=== PATIENT | male | born 1935 | race Hispanic/Latino ===

== ENCOUNTER 2018-06-28 12:26 | Outpatient (CLI) | payer MEDICARE ==
--- NOTE | 2018-07-03 10:45 | Vascular Lab Report ---
CAROTID DUPLEX STUDY: RIGHT PSVEDV CCA PROX:[id number] CCA DIST:6614 ICA PROX:8616 ICA MID:6820 ICA DIST:7719 ECA: 109 VERT: 54 14 LEFT PSVEDV CCA PROX:8715 CCA DIST:6712 ICA PROX:6813 ICA MID:7919 ICA DIST:6013 ECA: 89 VERT: 58 15 REASON FOR EXAM: Carotid artery stenosis. COMMENTS ON THE RIGHT: Doppler frequency analysis is consistent with 16 to 49 percent diameter reduction of the internal carotid artery. A moderate amount of mixed density plaque is seen. An irregular surface is noted. The common carotid artery is patent. The external carotid artery is patent. The vertebral artery has antegrade flow. COMMENTS ON THE LEFT: Doppler frequency analysis is consistent with 16 to 49 percent diameter reduction of the internal carotid artery. A small amount of plaque is seen. The common carotid artery is patent. The external carotid artery is patent. The vertebral artery has antegrade flow. IMPRESSION: Less than 50% diameter reduction in the internal carotid arteries bilaterally. A moderate amount of irregular surface to calcified plaque is seen in the right internal carotid artery. A limited amount of plaque seen in the left internal carotid artery. Consider repeat carotid duplex in one year if clinically appropriate.
== END 2018-06-28 12:27 | disposition home or self-care (01) ==
LOC: VAS 12:26
PROVIDERS: ATTEND Specialist
DX: I65.29 Occlusion and stenosis of unspecified carotid artery (principal); M54.2 Cervicalgia
CPT/HCPCS: 93880

== ENCOUNTER 2021-04-07 11:12 | Outpatient (CLI) | payer MEDICARE | END 2021-04-07 11:13 | disposition home or self-care (01) | LOC: CT 11:12 | PROVIDERS: ATTEND Radiology Diagnostic Radiology | DX: R22.1 Localized swelling, mass and lump, neck (principal) | CPT/HCPCS: 36415; 82565; 84520 ==